=== PATIENT | male | born 1930 | race Caucasian/White ===

== ENCOUNTER 2017-02-25 18:30 | Inpatient (IN) | payer MEDICARE ==
[~2017-02-25] VITALS: Ht 170.2 cm; Wt 92.2 kg
[~2017-02-25 18:30] MED LIST: BIOCEL TABLET1 EACH PO; CALC0.25 PO; CIPR-278 PO; FISH1CAP22 PO; METR500 PO; OMEP20TA25 PO; SIMV40TA5; ZOLP-245
[2017-02-25] MEDS ORDERED: AMLO2.5T PO (18:35)
[2017-02-25] MEDS ORDERED: DONE10TA8 PO (18:35)
[2017-02-25] MEDS ORDERED: DOXA2TAB PO (18:35)
[2017-02-25] MEDS ORDERED: LOSA50TA37 PO (18:35)
[2017-02-25] MEDS ORDERED: GLIP5 PO (18:35)
[2017-02-25] MEDS ORDERED: MEMA10TA11 PO (18:36)
[2017-02-25] MEDS ORDERED: FOLI0.8T2 PO (18:36)
[2017-02-25] MEDS ORDERED: SIMV-260 PO (18:36)
[2017-02-25 18:42] LABS: GLUCOSE,POINT OF CARE 142 MG/DL (70-110)
[2017-02-25] MEDS ORDERED: ASPIRIN 325 MG TABLET PO ONE (19:30)
[2017-02-25 19:37] LABS: BASOPHILS % (AUTO) 0.3 % (0.0-2.0); EOSINOPHILS % (AUTO) 0.9 % (1.0-6.0); HEMATOCRIT 37.7 % (41-53); HEMOGLOBIN 13.1 g/dL (13.5-17.5); LYMPHOCYTES # (AUTO) 0.6 K/uL (1.0-4.8); LYMPHOCYTES % (AUTO) 5.3 % (22.0-44.0); MEAN CORPUSCULAR HEMOGLOBIN 30.5 pg (26.0-34.0); MEAN CORPUSCULAR HGB CONC 34.7 G/dL (31.0-37.0); MEAN CORPUSCULAR VOLUME 88 fL (80-100); MONOCYTES # (AUTO) 0.7 K/uL (0.1-1.0); MONOCYTES % (AUTO) 6.2 % (2.0-9.0); NEUTROPHILS # (AUTO) 9.8 K/uL (1.8-7.7); PLATELET COUNT (AUTO) 219 K/uL (150-450); RED BLOOD CELL COUNT(AUTO) 4.29 MIL/uL (4.50-5.90); RED CELL DISTRIBUTION WIDTH 14.5 % (11.5-14.5); WHITE BLOOD COUNT (AUTO) 11.3 K/uL (4.5-11.0)
[2017-02-25 19:40] LABS: ANION GAP 8 mmol/L (8-16); CALCIUM, TOTAL 8.7 mg/dL (8.8-10.5); CARBON DIOXIDE 26 mmol/L (22-29); CHLORIDE 94 mmol/L (98-107); CREATININE 1.51 mg/dL (0.60-1.30); GLOMERULAR FILTR. RATE CALC 44 mL/min (>60); NEUTROPHILS % (AUTO) 87.3 % (40.0-70.0); POTASSIUM 3.8 mmol/L (3.5-5.1); SODIUM SERUM 128 mmol/L (136-145); UREA NITROGEN, BLOOD 25 mg/dL (7-18)
[2017-02-25 19:45] LABS: ALANINE AMINOTRANSFERASE 20 U/L (12-78); ALBUMIN 3.5 g/dL (3.4-5.0); ASPARTATE AMINOTRANSFERASE 17 U/L (15-37); BILIRUBIN,TOTAL 0.4 mg/dL (0.1-1.0); CREATINE KINASE, TOTAL 53 U/L (39-308)
[2017-02-25 19:46] LABS: PROTHROMBIN TIME 10.5 SEC (9.4-11.6)
[2017-02-25] MEDS ORDERED: ACETAMINOPHEN 325 MG TABLET PO PRN (20:00)
[2017-02-25] MEDS ORDERED: 0.9% SODIUM CHLORIDE 10 ML SYRINGE IVP PRN (20:00)
[2017-02-25] MEDS ORDERED: ONDANSETRON HCL 4 MG/2 ML VIAL IVP PRN (20:00)
[2017-02-25] MEDS ORDERED: SODIUM CHLORIDE 0.9% 1,000 ML IV ONE (20:00)
[2017-02-25 21:01] LABS: APPEARANCE,URINE CLEAR (CLEAR); GLUCOSE, URINE (UA) NEGATIVE (NEGATIVE); KETONES,URINE NEGATIVE (NEGATIVE); LEUKOCYTE ESTERASE ,URINE NEGATIVE (NEGATIVE); OCCULT BLOOD,URINE NEGATIVE (NEGATIVE); PH,URINE 6.5 (5.0-8.0); PROTEIN,URINE NEGATIVE (NEGATIVE)
[2017-02-25 21:04] LABS: ADD UA MICROSCOPIC NO
[2017-02-26] VITALS: BP 158/92
[2017-02-26] MEDS ORDERED: PNEUMOCOCCAL VACCINE POLYVALENT 0.5 ML VIAL [PPSV23] IM ONE (05:45)
[2017-02-26 06:12] VITALS: BP 142/91
[2017-02-26 07:35] VITALS: BP 147/63
[2017-02-26 08:27] LABS: BASOPHILS % (AUTO) 0.7 % (0.0-2.0); EOSINOPHILS % (AUTO) 4.3 % (1.0-6.0); HEMATOCRIT 36.6 % (41-53); HEMOGLOBIN 12.9 g/dL (13.5-17.5); LYMPHOCYTES # (AUTO) 0.7 K/uL (1.0-4.8); LYMPHOCYTES % (AUTO) 9.3 % (22.0-44.0); MEAN CORPUSCULAR HEMOGLOBIN 30.8 pg (26.0-34.0); MEAN CORPUSCULAR HGB CONC 35.1 G/dL (31.0-37.0); MEAN CORPUSCULAR VOLUME 88 fL (80-100); MONOCYTES # (AUTO) 0.7 K/uL (0.1-1.0); MONOCYTES % (AUTO) 9.2 % (2.0-9.0); NEUTROPHILS % (AUTO) 76.5 % (40.0-70.0); PLATELET COUNT (AUTO) 223 K/uL (150-450); RED BLOOD CELL COUNT(AUTO) 4.18 MIL/uL (4.50-5.90); RED CELL DISTRIBUTION WIDTH 14.6 % (11.5-14.5); WHITE BLOOD COUNT (AUTO) 7.9 K/uL (4.5-11.0)
[2017-02-26 09:01] LABS: ALBUMIN 3.2 g/dL (3.4-5.0); BILIRUBIN,TOTAL 0.4 mg/dL (0.1-1.0); CALCIUM, TOTAL 8.7 mg/dL (8.8-10.5); CREATININE 1.37 mg/dL (0.60-1.30); POTASSIUM 3.6 mmol/L (3.5-5.1); TOTAL PROTEIN, SERUM 6.5 g/dL (6.4-8.2)
[2017-02-26] MEDS: VITAMIN B COMP/VIT C/FOLIC ACID CAPSULE PO SCH (11:01)
[2017-02-26] MEDS: SIMVASTATIN 20 MG TABLET PO SCH (11:01)
[2017-02-26] MEDS: LOSARTAN POTASSIUM 50 MG TABLET PO SCH (11:01)
[2017-02-26 11:28] VITALS: BP 132/58
[2017-02-26] MEDS: MEMANTINE HCL 10 MG TABLET PO SCH (12:12)
[2017-02-26] MEDS: DONEPEZIL HCL 10 MG TABLET PO SCH ×2 (12:12→21:32)
[2017-02-26] MEDS: AmLODIPine BESYLATE 2.5 MG TABLET PO SCH (12:12)
[2017-02-26] MEDS: DOXAZOSIN MESYLATE 2 MG TABLET PO SCH (12:13)
[2017-02-26 15:26] VITALS: BP 121/49
[2017-02-26] MEDS ORDERED: CALCITRIOL 0.25 MCG CAPSULE PO SCH (16:00)
[2017-02-26 20:27] VITALS: BP 151/83
[2017-02-27 00:07] VITALS: BP 152/75
[2017-02-27 04:58] VITALS: BP 150/78
[2017-02-27 06:21] LABS: BASOPHILS # (AUTO) 0.03 K/uL (0.00-0.20); BASOPHILS % (AUTO) 0.5 % (0.0-2.0); EOSINOPHILS # (AUTO) 0.41 K/uL (0.00-0.70); EOSINOPHILS % (AUTO) 5.82 % (1.0-6.0); HEMATOCRIT 36.8 % (41-53); HEMOGLOBIN 12.5 g/dL (13.5-17.5); LYMPHOCYTES # (AUTO) 0.8 K/uL (1.0-4.8); LYMPHOCYTES % (AUTO) 10.5 % (22.0-44.0); MEAN CORPUSCULAR HEMOGLOBIN 30.3 pg (26.0-34.0); MEAN CORPUSCULAR VOLUME 89 fL (80-100); MONOCYTES # (AUTO) 0.6 K/uL (0.1-1.0); MONOCYTES % (AUTO) 9.1 % (2.0-9.0); NEUTROPHILS # (AUTO) 5.3 K/uL (1.8-7.7); NEUTROPHILS % (AUTO) 74.1 % (40.0-70.0); PLATELET COUNT (AUTO) 204 K/uL (150-450); RED BLOOD CELL COUNT(AUTO) 4.14 MIL/uL (4.50-5.90); RED CELL DISTRIBUTION WIDTH 14.2 % (11.5-14.5); WHITE BLOOD COUNT (AUTO) 7.1 K/uL (4.5-11.0)
[2017-02-27] MEDS ORDERED: GlipiZIDE 5 MG TABLET PO SCH (06:30)
[2017-02-27 06:34] LABS: ALBUMIN 3.1 g/dL (3.4-5.0); BILIRUBIN,TOTAL 0.4 mg/dL (0.1-1.0); CALCIUM, TOTAL 8.3 mg/dL (8.8-10.5); CHOL/HDL RATIO 2.1 (4.2-7.3); CREATININE 1.39 mg/dL (0.60-1.30); POTASSIUM 3.8 mmol/L (3.5-5.1); TOTAL PROTEIN, SERUM 6.2 g/dL (6.4-8.2)
[2017-02-27 07:01] VITALS: BP 131/70
[2017-02-27 07:40] LABS: HEMOGLOBIN A1C 5.7 % (4.5-6.2)
[2017-02-27] MEDS: SIMVASTATIN 20 MG TABLET PO SCH (08:37)
[2017-02-27] MEDS: VITAMIN B COMP/VIT C/FOLIC ACID CAPSULE PO SCH (08:37)
[2017-02-27] MEDS: DOXAZOSIN MESYLATE 2 MG TABLET PO SCH (08:37)
[2017-02-27] MEDS: LOSARTAN POTASSIUM 50 MG TABLET PO SCH (08:37)
[2017-02-27] MEDS: MEMANTINE HCL 10 MG TABLET PO SCH (08:38)
[2017-02-27] MEDS: AmLODIPine BESYLATE 2.5 MG TABLET PO SCH (08:38)
[2017-02-27] MEDS: DONEPEZIL HCL 10 MG TABLET PO SCH (08:38)
[2017-02-27 11:23] VITALS: BP 126/65
== END 2017-02-27 15:10 | disposition home or self-care (01) | DRG 313 ==
LOC: EMS 18:31 → 5S 22:54
PROVIDERS: ADMIT Family Medicine; ATTEND Family Medicine
PROC: 3E0234Z Introduction of Serum, Toxoid and Vaccine into Muscle, Percutaneous Approach (ICD-10-PCS; principal; 2017-02-26)
DX: R07.9 Chest pain, unspecified (principal); I25.10 Atherosclerotic heart disease of native coronary artery without angina pectoris; E11.22 Type 2 diabetes mellitus with diabetic chronic kidney disease; E11.40 Type 2 diabetes mellitus with diabetic neuropathy, unspecified; E87.1 Hypo-osmolality and hyponatremia; F03.90 Unspecified dementia, unspecified severity, without behavioral disturbance, psychotic disturbance, mood disturbance, and anxiety; E78.5 Hyperlipidemia, unspecified; N18.3 Chronic kidney disease, stage 3 (moderate); I51.7 Cardiomegaly; Z95.1 Presence of aortocoronary bypass graft; Z23 Encounter for immunization; I12.9 Hypertensive chronic kidney disease with stage 1 through stage 4 chronic kidney disease, or unspecified chronic kidney disease
CPT/HCPCS: 82962; 83036; 83735; 90471; 93005; 93306; 96360; 96361; 99285; J7030